=== PATIENT | female | born 1960 | race African-American/Black ===

== ENCOUNTER 2025-05-22 20:53 | Emergency (ER) | payer OTHER ==
[~2025-05-22] VITALS: Ht 154.9 cm; Wt 63.0 kg
[~2025-05-22 20:53] MED LIST: DOCU-138 MT; LACT-390 MT
[2025-05-22 21:08] VITALS: O2SAT 98
[2025-05-22 22:07] LABS: BASOPHILS % 1.0 % (0.0-2.0); EOSINOPHILS % 0.3 % (0.0-5.0); HEMATOCRIT. 43.3 % (36.0-48.0); HEMOGLOBIN. 14.1 g/dL (12.0-16.0); LYMPHOCYTES % 34.0 % (20.0-50.0); MEAN PLATELET VOLUME 7.8 fl (7.4-10.4); MONOCYTES % 8.9 % (2.0-8.0); NEUTROPHILS % 55.8 % (40.0-76.0); PLATELET 280 x1000/uL (130-400); RED BLOOD CELL COUNT 4.69 mill/uL (4.2-5.4); RED CELL DISTRIBUTION WIDTH 13.8 % (11.6-14.6)
[2025-05-22 22:22] LABS: CREATININE 1.0 mg/dL (0.6-1.0); UREA NITROGEN BLOOD 19 mg/dL (9-23)
[2025-05-22 22:23] LABS: ETHANOL BLOOD < 10 mg/dL (<10)
[2025-05-22] MEDS: SODIUM CHLORIDE 0.9% 1,000 ML IV ONE (22:25)
[2025-05-23 00:57] VITALS: BP 118/86; PULSE 71; RESP 20; TEMP 36.8; O2SAT 100
== END 2025-05-23 01:18 | disposition home or self-care (01) ==
LOC: ER 20:53
DX: F12.929 Cannabis use, unspecified with intoxication, unspecified (principal); F03.A3 Unspecified dementia, mild, with mood disturbance; F17.200 Nicotine dependence, unspecified, uncomplicated; F31.9 Bipolar disorder, unspecified; R53.1 Weakness
CPT/HCPCS: 80048; 80320; 85025; 36415; 96360; 99284; 93005; J7030; G0480